=== PATIENT | female | born 2000 | race Caucasian/White ===

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

== ENCOUNTER 2022-01-30 11:10 | Outpatient (CLI) | payer MEDICAID ==
[2022-01-30 17:41] LABS: BASOPHILS % (AUTO) 0.6 %; EOSINOPHILS # (AUTO) 0.1 10^3/uL (0.0-0.7); EOSINOPHILS % (AUTO) 1.5 %; HCT - HEMATOCRIT 43.2 % (37.0-47.0); HGB - HEMOGLOBIN 14.3 g/dL (12.0-16.0); LYMPHOCYTES # (AUTO) 2.2 10^3/uL (1.5-3.5); MEAN CORPUSCULAR HEMOGLOBIN 29.5 pg (27.0-31.0); MEAN CORPUSCULAR HGB CONC 33.1 g/dL (32.0-36.0); MEAN CORPUSCULAR VOLUME 89.3 fL (81.0-99.0); MEAN PLATELET VOLUME 10.7 fL (7.9-10.8); MONOCYTES # (AUTO) 0.5 10^3/uL (0.0-1.0); MONOCYTES % (AUTO) 8.1 %; NEUTROPHILS # (AUTO) 3.3 10^3/uL (1.5-6.6); NEUTROPHILS % (AUTO) 53.6 %; PLT - PLATELET COUNT 315 10^3/uL (130-450); RED BLOOD COUNT 4.84 10^6/uL (4.20-5.40); RED CELL DISTRIBUTION WIDTH 12.4 % (12.0-15.0); WHITE BLOOD COUNT 6.2 x10^3/uL (4.8-10.8)
[2022-01-30 17:56] LABS: ALBUMIN 4.8 g/dL (3.2-5.5); ALBUMIN/GLOBULIN RATIO 1.5 (1.0-2.2); ALKALINE PHOSPHATASE 51 IU/L (42-121); ALT ALANINE AMINOTRANSFERASE 13 IU/L (10-60); AST ASPARTATE AMINOTRANSFERASE 17 IU/L (10-42); BILIRUBIN,TOTAL 0.4 mg/dL (0.2-1.0); BUN - BLOOD UREA NITROGEN 12 mg/dL (6-20); CALCIUM 9.8 mg/dL (8.5-10.3); CARBON DIOXIDE - CO2 29 mmol/L (21-32); CHLORIDE 102 mmol/L (101-111); CHOL/HDL RATIO 3.3 (<4.4); CHOLESTEROL 144 mg/dL; CREATININE 0.7 mg/dL (0.4-1.0); GFR - MDRD 107 (>89); GLUCOSE 101 mg/dL (70-100); HDL CHOLESTEROL 44 mg/dL; LDL CHOLESTEROL,CALCULATED 88 mg/dL; POTASSIUM 4.2 mmol/L (3.5-5.0); SODIUM 139 mmol/L (135-145); TRIGLYCERIDES 62 mg/dL; VLDL CHOLESTEROL 12 mg/dL
[2022-01-30 20:35] LABS: CHLAMYDIA TRACHOMATIS DNA NEGATIVE (NEGATIVE); NEISSERIA GONORRHOEAE DNA NEGATIVE (NEGATIVE); TRICHOMONAS VAGINALIS DNA NEGATIVE (NEGATIVE)
== END 2022-01-30 11:11 | disposition home or self-care (01) ==
LOC: LAB.N 11:10
PROVIDERS: ATTEND Nurse Practitioner
DX: Z00.00 Encounter for general adult medical examination without abnormal findings (principal); Z13.220 Encounter for screening for lipoid disorders; Z11.3 Encounter for screening for infections with a predominantly sexual mode of transmission
CPT/HCPCS: 36415; 80053; 80061; 83721; 85025; 87491; 87591; 87661

== ENCOUNTER 2023-09-12 06:30 | Emergency (ER) | payer MEDICAID ==
--- NOTE | 2023-09-12 07:11 | ED Physician Documentation ---
PD HPI FEMALE - Stated complaint Stated Complaint: FEMALE - Chief complaint Chief Complaint: Abd Pain - History obtained from History obtained from: Patient - History of Present Illness Timing - onset: How many months ago (2) Timing - duration: Months (2) Timing - details: Gradual onset, Still present, Waxing and waning Associated symptoms: Pelvic pain. No: Back pain, Vaginal bleeding, Vaginal discharge, Dysuria, Urinary frequency Contributing factors: Sexually active. 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 denies: Dysuria, Frequency, Discharge Skin: denies: Rash, Lesions PD PAST MEDICAL HISTORY - Past Medical History Past Medical History: Yes Cardiovascular: None Respiratory: None Neuro: Headaches, Migraines Endocrine/Autoimmune: None GI: GERD OUTSIDE SALESMAN: None : None HEENT: None Psych: Depression, Anxiety Musculoskeletal: None Derm: None - Past Surgical History Past Surgical History: No - Present Medications Home Medications: Ambulatory Orders Medication Instructions Recorded Confirmed Fluconazole [Diflucan] 100 mg PO Q3D #3 tablet 09/12/23 Meloxicam [Mobic] 7.5 mg PO BID 10 Days #20 tablet 09/12/23 metroNIDAZOLE [Flagyl] 500 mg PO BID 10 Days #20 tablet 09/12/23 - Allergies Allergies/Adverse Reactions: Allergies Allergy/AdvReac Type Severity Reaction Status Date / Time No Known Drug Allergies Allergy Verified 09/12/23 06:50 - Social History Does the pt smoke?: Yes Smoking Status: Current every day smoker Does the pt drink ETOH?: Yes Does the pt have substance abuse?: Yes Substance Use and Type: Marijuana, Meth - Immunizations Immunizations are current?: Yes - POLST Patient has POLST: No PD ED PE NORMAL - Vitals Vital signs reviewed: Yes - General General: Alert and oriented X 3, No acute distress, Well developed/nourished - Abdomen Abdomen: Soft, Non tender - Female Female : Deferred - Rectal Rectal: Deferred - Back Back: No CVA TTP - Derm Derm: Normal color, Warm and dry Results - Vitals Vitals: Vital Signs - 24 hr 09/12/23 09/12/23 09/12/23 06:52 10:19 11:37 Temperature 36.3 C L 36 C L Heart Rate 86 66 90 Respiratory 16 16 18 Rate Blood Pressure 120/72 107/72 118/75 O2 Saturation 99 99 98 Oxygen O2 Source Room air - Labs Labs: Laboratory Tests 09/12/23 09/12/23 09/12/23 07:42 08:10 08:10 Urine Color YELLOW Urine Clarity CLEAR Urine pH 7.0 Ur Specific [place] 1.020 Urine Protein NEGATIVE Urine Glucose (UA) NEGATIVE Urine Ketones NEGATIVE Urine Occult Blood NEGATIVE Urine Nitrite NEGATIVE Urine Bilirubin NEGATIVE Urine Urobilinogen 0.2 (NORMAL) Ur Leukocyte Esterase NEGATIVE Ur Microscopic Review NOT INDICATED Urine Culture Comments NOT INDICATED Urine HCG, Qual NEGATIVE C. glabrata (PCR) NEGATIVE C. krusei (PCR) NEGATIVE [place] species DNA POSITIVE A Chlam trachomat DNA PCR NEGATIVE N.gonorrhoeae DNA (PCR) NEGATIVE T. vaginalis (PCR) NEGATIVE TNP Bact Vaginosis (PCR) POSITIVE A - Rads (name of study) pelvic US Relevant Findings:: Prelim report reviewed (normal pelvic US. IUD in place without problems. ), EMP independent interpretation of test PD Medical Decision Making - ED course Complexity details: reviewed results (pelvic US showing IUD in place. Normal adnexa. No acute process. Vaginal testing positive for yeast and BV. UA negative.), considered differential (lower abd pelvic cramping pain. Has had IUD in place for 1 1/2 years wthout problems. Presume the current infection leading to pelvic pains. ), d/w patient Departure - Departure Disposition: 01 Home, Self Care Clinical Impression: Lower abdominal pain, IUD (intrauterine device) in place, Vaginitis Condition: Stable Record reviewed to determine appropriate education?: Yes Instructions: ED Vaginosis Bacterial Follow-[facility]: [facility] [Provider Group] Prescriptions: Fluconazole [Diflucan] 100 mg PO Q3D #3 tablet metroNIDAZOLE [Flagyl] 500 mg PO BID 10 Days #20 tablet Meloxicam [Mobic] 7.5 mg PO BID 10 Days #20 tablet Comments: Your urine test is normal as is test. The ultrasound showed normal ovaries without any cysts. The IUD is in the correct position. The vaginal swab test actually just resulted a few minutes ago and is showing signs of a vaginitis of both bacterial and yeast. This is likely causing the irritation and cramping and pains. We can treat this with an antifungal as well as an antibiotic. In addition I would suggest some regular use of anti-inflammatories. I wrote a prescription for meloxicam, metronidazole and Diflucan. To that add Tylenol 500 to 650 mg 4 times daily if needed for pains. I would anticipate improvement over the next several days to week. You can follow-up with the women's health clinic and to make an appointment for 2 or 3 weeks from now. They can recheck to ensure the infection has cleared completely. I sent your prescriptions to your preferred pharmacy. Forms: PCP List Discharge Date/Time: 09/12/23 11:38
[2023-09-12] MEDS ORDERED: NAPROXEN 250 MG TABLET PO STA (07:44)
[2023-09-12 07:59] LABS: BILIRUBIN,URINE NEGATIVE (NEGATIVE); GLUCOSE, URINE (UA) NEGATIVE (NEGATIVE); KETONES,URINE (UA) NEGATIVE (NEGATIVE); LEUKOCYTE ESTERASE, URINE NEGATIVE (NEGATIVE); NITRITE,URINE NEGATIVE (NEGATIVE); OCCULT BLOOD,URINE NEGATIVE (NEGATIVE); PROTEIN,URINE NEGATIVE (NEGATIVE); UROBILINOGEN,URINE 0.2 (NORMAL) E.U./dL (NORMAL)
[2023-09-12 08:08] LABS: CLARITY,URINE CLEAR (CLEAR); HCG UR QUAL NEGATIVE
[2023-09-12 10:29] LABS: BACTERIAL VAGINOSIS DNA POSITIVE (NEGATIVE); CANDIDA GLABRATA DNA NEGATIVE (NEGATIVE); CANDIDA GROUP DNA POSITIVE (NEGATIVE); CANDIDA KRUSEI DNA NEGATIVE (NEGATIVE); TRICHOMONAS VAGINALIS DNA NEGATIVE (NEGATIVE)
[2023-09-12 11:26] LABS: CHLAMYDIA TRACHOMATIS DNA NEGATIVE (NEGATIVE); NEISSERIA GONORRHOEAE DNA NEGATIVE (NEGATIVE)
--- NOTE | 2023-09-12 11:42 | Ultrasound Report ---
PROCEDURE: Pelvic w/Transvag+Doppler Comp INDICATIONS: pelvic cramping; IUD in place TECHNIQUE: Real-time scanning was performed of the pelvic organs, with image documentation. Additional endovagi nal scanning was necessary due to incomplete visualization of the adnexal and endometrial structures by transabdominal scanning. Doppler interrogation was performed of the ovaries bilaterally. COMPARISON: None. FINDINGS: Uterus: Uterus is anteverted and normal in size at 7.7 x 3 x 4.2 cm. The myometrium is homogeneous. The endometrium measures 2.5 mm in combined thickness. There is no endometrial mass or fluid. Intr auterine device is noted within its central endometrial location. Ovaries: The right ovary measures 3.3 x 2.1 x 3.4 cm, with a calculated ovarian volume of 12.3 cc. The left ovary measures 3.7 x 1.9 x 1.8 cm, with a calculated ovarian volume of 6.6 cc. Appropriate blood flow to the ovaries with Doppler interrogation. Less than 12 follicles can be seen in left ov bonnie. Greater than 12 follicles are seen in right ovary. No adnexal masses are seen. No cystic lesions measuring greater than 3 cm. Other: No pathologic free abdominal or pelvic fluid. IMPRESSION: 1. Greater than 12 follicles can be seen in right ovary, which can be seen in the clinical setting of PCOS. Normal-appearing left ovary. 2. Intrauterine device is seen in its normal central endometrial location. No endometrial mass or flu id. No discrete uterine fibroid. Reviewed by: Mark Sandhu MD on 09/12/2023 11:[address] [facility] Approved by: Mark Sandhu MD on 09/12/2023 11:40 AM PST Station ID: [id number]
[2023-09-12 11:44] VITALS: BP 118/75; O2SAT 98
== END 2023-09-12 11:38 | disposition home or self-care (01) ==
LOC: ED 06:30
DX: N76.0 Acute vaginitis (principal); R10.30 Lower abdominal pain, unspecified; F17.200 Nicotine dependence, unspecified, uncomplicated; Z97.5 Presence of (intrauterine) contraceptive device
CPT/HCPCS: 76830; 76856; 81003; 81025; 81514; 87491; 87591; 93975; 99284; A9270; 81001; 87086; 87661

== ENCOUNTER 2023-10-28 10:49 | Emergency (ER) | payer MEDICAID ==
[2023-10-28 13:12] VITALS: BP 122/73; O2SAT 99
[2023-10-28 13:13] LABS: BILIRUBIN,URINE NEGATIVE (NEGATIVE); GLUCOSE, URINE (UA) NEGATIVE (NEGATIVE); KETONES,URINE (UA) NEGATIVE (NEGATIVE); LEUKOCYTE ESTERASE, URINE NEGATIVE (NEGATIVE); NITRITE,URINE NEGATIVE (NEGATIVE); OCCULT BLOOD,URINE NEGATIVE (NEGATIVE); PH,URINE 6.5 PH (5.0-7.5); PROTEIN,URINE 30 mg/dL (NEGATIVE); UROBILINOGEN,URINE 0.2 (NORMAL) E.U./dL (NORMAL)
[2023-10-28 13:14] LABS: CLARITY,URINE SL. CLOUDY (CLEAR); HCG UR QUAL NEGATIVE
[2023-10-28 13:22] LABS: BACTERIA,URINE Few /HPF (None Seen); RBC,URINE 0-5 /HPF (0-5); SQUAMOUS EPITHELIAL CELL,UR MANY Squamous (<= Few)
[2023-10-28 13:23] LABS: AMPHETAMINE SCREEN,URINE POSITIVE (NEGATIVE); BARBITURATE SCREEN,UR NEGATIVE (NEGATIVE); BENZODIAZEPINES SCREEN, URINE NEGATIVE (NEGATIVE); COCAINE SCREEN URINE NEGATIVE (NEGATIVE); METHADONE SCREEN, URINE NEGATIVE (NEGATIVE); METHAMPHETAMINES SCREEN, URINE POSITIVE (NEGATIVE); OPIATE SCREEN, URINE NEGATIVE (NEGATIVE); OXYCODONE SCREEN, URINE NEGATIVE (NEGATIVE); THC CANNABINOID SCREEN, URINE NEGATIVE (NEGATIVE); TRICYCLIC ANTIDEPRESSANT,URINE NEGATIVE (NEGATIVE)
[2023-10-28 13:24] LABS: BUPRENORPHINE SCREEN, URINE NEGATIVE (NEGATIVE)
--- NOTE | 2023-10-28 13:34 | ED Physician Documentation ---
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 : None HEENT: None Psych: Depression, Anxiety Musculoskeletal: None Derm: None - Past Surgical History Past Surgical History: No - Present Medications Home Medications: Ambulatory Orders Medication Instructions Recorded Confirmed HYDROcod/ACETAM 5/325 [[place] 5/325] 1 ea PO Q6H PRN #12 tablet 10/28/23 Meloxicam [Mobic] 7.5 mg PO BID 10 Days #20 tablet 10/28/23 - Allergies Allergies/Adverse Reactions: Allergies Allergy/AdvReac Type Severity Reaction Status Date / Time No Known Drug Allergies Allergy Verified 10/28/23 11:18 - Social History Does the pt smoke?: Yes Smoking Status: Current every day smoker Does the pt drink ETOH?: Yes Does the pt have substance abuse?: Yes Substance Use and Type: Marijuana, Meth - Immunizations Immunizations are current?: Yes - POLST Patient has POLST: No PD ED PE NORMAL - Vitals Vital signs reviewed: Yes - General General: Alert and oriented X 3, Well developed/nourished, Other (somewhat scattered thought process but able to give good history. ) - Derm Derm: Normal color, Warm and dry - Extremities Extremities: Other (gree to yleoow several bruises along shins both legs. No arm bruises. Knees both sides with tenderness above kneecaps with crepitance feeling on ROM c/w tendonitis. No effusions. Cruciate and collateral testins without laxity nor pain. ) - Neuro Neuro: Alert and oriented X 3, No motor deficit, No sensory deficit Results - Vitals Vitals: Oxygen O2 Source Room air - Labs Labs: Laboratory Tests 10/28/23 13:04 Urine Color YELLOW Urine Clarity SL. CLOUDY Urine pH 6.5 Ur Specific [place] 1.025 Urine Protein 30 H Urine Glucose (UA) NEGATIVE Urine Ketones NEGATIVE Urine Occult Blood NEGATIVE Urine Nitrite NEGATIVE Urine Bilirubin NEGATIVE Urine Urobilinogen 0.2 (NORMAL) Ur Leukocyte Esterase NEGATIVE Urine RBC 0-5 Urine WBC 4-5 Ur Squamous Epith Cells MANY Squamous H Urine Bacteria Few Ur Microscopic Review INDICATED Urine Culture Comments NOT INDICATED Urine HCG, Qual NEGATIVE Urine Opiates Screen NEGATIVE Ur Buprenorphine Scrn NEGATIVE Ur Oxycodone Screen NEGATIVE Urine Methadone Screen NEGATIVE Ur Barbiturates Screen NEGATIVE Ur Tricyclics Screen NEGATIVE Ur Phencyclidine Scrn NEGATIVE Ur Amphetamine Screen POSITIVE H U Methamphetamines Scrn POSITIVE H U Benzodiazepines Scrn NEGATIVE Urine Cocaine Screen NEGATIVE U Cannabinoids Screen NEGATIVE Ur Drug Screen Comment CUTOFF CONC BELOW: PD Medical Decision Making - ED course Complexity details: reviewed old records (various visits for other problems. No NIRALI, no apparent drug seeking pattern. Does have substance abuse problems with meth. No narcotic use/abuse in the past per patient. I feel okay iwth short term meds for pain along with NSAIDs/knee brace for left knee (the worst painful per pt).), reviewed results (UA positive for meth. She denies opiod abuse/use disorder. ), considered differential (no noted acute injury per se. Does have some bruising on shins that are green/yellow. No bruising on kneecaps. Has crepitance in quads tendons with ROM c/w tendonitis. No effusion. ), d/w patient Departure - Departure Disposition: 01 Home, Self Care Clinical Impression: Patellar tendinitis of both knees Condition: Stable Record reviewed to determine appropriate education?: Yes Instructions: Kneecap Probs Common Follow-Up: [facility] [Provider Group] Prescriptions: Meloxicam [Mobic] 7.5 mg PO BID 10 Days #20 tablet HYDROcod/ACETAM 5/325 [[place] 5/325] 1 ea PO Q6H PRN #12 tablet PRN Reason: Pain Comments: Your knees do not appear to have an infection to them. The ligaments with the main ones being cruciates and collateral ligaments seem okay on exam. On exam seems mostly that you have some patellar tendinitis which is some inflammation of the tendons over the kneecap. That is the crackly feeling that you have with movement of the knee, is movement of the tendon through the sheath without being as well-lubricated as usual due to inflammation. Less motion on the knees with walking. We provided a knee immobilizer to use mainly on the left 1 which is the one most bothering you. You can use that when up and around. You can have it off when rested. We can use a long-acting and a inflammatory. I prescribed meloxicam to use twice daily with food for the next 7 to 10 days. To that add Tylenol every 4-6 hours if needed for pain or hydrocodone/acetaminophen if needed for worse pain. I sent these to your preferred pharmacy. Recheck if not improving well over the next several days and resolved by 5 to 7 days. I would anticipate this getting better with the above treatments. Follow-up with the orthopedic office if persistent symptoms and problems. Return if needed. I am prescribing a short course of narcotic pain medication for you. These are potentially dangerous and addictive medications that should be used carefully. These medications may constipate you. Take an [id number] stool softener such as docusate twice daily with plenty of water while taking these medications. If you go 24 hours without a bowel movement, take [id number] MiraLAX, per package instructions. Do not drink or drive while taking these medications. If you received narcotic or sedating medications while in the emergency department do not drive for 24 hours. Store this medication in a safe, secure place and out of reach of children. It is a violation of federal law to give or sell this medication to another person or to use in a manner other than prescribed. The ED will not refill narcotic prescriptions, including prescriptions lost or stolen. You can dispose of unwanted medications at the [facility]'s office or at several pharmacies such as [facility] (?). Forms: PCP List Discharge Date/Time: 10/28/23 13:54
[2023-10-28] MEDS: dexAMETHasone 4 MG TABLET PO STA (13:50)
[2023-10-28] MEDS: ACETAMINOPHEN 500 MG TABLET PO STA (13:50)
== END 2023-10-28 13:54 | disposition home or self-care (01) ==
LOC: ED 10:49
DX: M76.52 Patellar tendinitis, left knee (principal); M76.51 Patellar tendinitis, right knee; F17.200 Nicotine dependence, unspecified, uncomplicated
CPT/HCPCS: 80306; 81001; 81025; 99283; A9270; J8540; 81003; 87086

== ENCOUNTER 2023-12-07 14:28 | Emergency (ER) | payer MEDICAID ==
--- NOTE | 2023-12-07 15:16 | ED Physician Documentation ---
PD HPI FEMALE - Stated complaint Stated Complaint: - Chief complaint Chief Complaint: General - History obtained from History obtained from: Patient - History of Present Illness Timing - onset: Last night Timing - details: Abrupt onset (she was using vibrator and felt that it got stuck in vagina. 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 : None HEENT: None Psych: Anxiety, Bipolar disorder Musculoskeletal: None Derm: None - Past Surgical History Past Surgical History: No - Present Medications Home Medications: Ambulatory Orders Medication Instructions Recorded Confirmed HYDROcod/ACETAM 5/325 [[place] 5/325] 1 ea PO Q6H PRN #12 tablet 10/28/23 Meloxicam [Mobic] 7.5 mg PO BID 10 Days #20 tablet 10/28/23 - Allergies Allergies/Adverse Reactions: Allergies Allergy/AdvReac Type Severity Reaction Status Date / Time No Known Drug Allergies Allergy Verified 12/07/23 14:32 - Social History Does the pt smoke?: Yes Smoking Status: Current every day smoker Does the pt drink ETOH?: Yes Does the pt have substance abuse?: Yes - Immunizations Immunizations are current?: Yes - POLST Patient has POLST: No PD ED PE NORMAL - Vitals Vital signs reviewed: Yes - General General: Alert and oriented X 3, No acute distress, Well developed/nourished - Abdomen Abdomen: Soft, Non tender - Female Female : Mud Logger 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 IUD string visible from cervical OS that is closed. No noted vaginal discahrge nor odor. ) - Rectal Rectal: Deferred - Derm Derm: Normal color, Warm and dry Results - Vitals Vitals: Vital Signs - 24 hr 12/07/23 12/07/23 12/07/23 14:32 16:17 16:43 Temperature 36.8 C Heart Rate 113 H 100 100 Respiratory 16 16 16 Rate Blood Pressure 140/90 H 130/86 H 130/86 H O2 Saturation 99 97 97 Oxygen O2 Source Room air - Rads (name of study) pelvic xray Relevant Findings:: Prelim report reviewed, EMP independent interpretation of test (IUD visible in uterine area. No other FB noted. ) PD Medical Decision Making - ED course Complexity details: considered differential (pt was sure of having small egg vibrator in vaginal vault. Pelvic without findings. Did pelvic xray after to ensure not rectal unintentionally. No FB seen (other that IUD in uterine position). ), d/w patient Departure - Departure Disposition: 01 Home, Self Care Clinical Impression: Normal pelvic exam Condition: Stable Record reviewed to determine appropriate education?: Yes Comments: I did not see any foreign bodies in the vaginal area. The IUD string is present. The IUD appears in place on plain x-ray. No other foreign body seen on the x-ray of your pelvis. As a side note, I also do not see any signs of infection or such on the pelvic exam. Forms: PCP List Discharge Date/Time: 12/07/23 16:43
[2023-12-07 16:21] VITALS: BP 130/86; O2SAT 97
--- NOTE | 2023-12-07 17:56 | XRAY Report ---
PROCEDURE: Pelvis 1-2V INDICATIONS: concern for FB pelvic/rectal TECHNIQUE: 1 view(s) of the pelvis acquired. COMPARISON: None. FINDINGS: Bones: No fractures or dislocations. No suspicious bony lesions. Soft tissues: There is a IUD in pelvis. Visualized bowel gas pattern is normal. No suspicious soft tissue calcifications. IMPRESSION: 1. No acute bony abnormality. IUD in pelvis. No other radiopaque foreign body. Reviewed by: Maliha Woodward MD on 12/07/2023 5:54 PM PDT Approved by: Maliha Woodward MD on 12/07/2023 5:54 PM PDT Station ID: [id number]
== END 2023-12-07 16:43 | disposition home or self-care (01) ==
LOC: ED 14:28
DX: Z01.419 Encounter for gynecological examination (general) (routine) without abnormal findings (principal); F31.9 Bipolar disorder, unspecified; F17.200 Nicotine dependence, unspecified, uncomplicated
CPT/HCPCS: 99283

== ENCOUNTER 2024-05-21 12:46 | Emergency (ER) | payer MEDICAID ==
[2024-05-21 13:03] VITALS: O2SAT 100
--- NOTE | 2024-05-21 13:03 | ED Physician Documentation ---
History of Present Illness - Stated complaint Stated Complaint: - Chief complaint Chief Complaint: UTI - History obtained from History obtained from: Patient - Additonal information Additional information: She gets occasional UTIs and has had increased dysuria and frequency over the last couple of days with some mild left flank pain. No fevers. 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 : None HEENT: None Psych: Anxiety, Bipolar disorder Musculoskeletal: None Derm: None - Past Surgical History Past Surgical History: No - Present Medications Home Medications: Ambulatory Orders Medication Instructions Recorded Confirmed Phenazopyridine HCl [Pyridium] 200 mg PO TID PRN #6 tablet 05/21/24 Sulfamethox/Trimeth 800/160 1 each PO BID #10 tablet 05/21/24 [Bactrim Ds 800/160] - Allergies Allergies/Adverse Reactions: Allergies Allergy/AdvReac Type Severity Reaction Status Date / Time No Known Drug Allergies Allergy Verified 05/21/24 12:49 - Social History Does the pt smoke?: Yes Smoking Status: Current every day smoker Does the pt drink ETOH?: Yes Does the pt have substance abuse?: Yes Substance Use and Type: Marijuana, Meth - Immunizations Immunizations are current?: Yes - POLST Patient has POLST: No PD ED PE NORMAL - General General: No acute distress, Well developed/nourished - Abdomen Abdomen: Non tender - Back Back: Other (Mild left CVA tenderness) - Neuro Neuro: Alert and oriented X 3 Results - Vitals Vitals: Vital Signs - 24 hr 05/21/24 05/21/24 05/21/24 12:49 12:56 14:06 Temperature 36.8 C Heart Rate 105 H 95 Respiratory 16 17 16 Rate Blood Pressure 124/84 H 127/85 H O2 Saturation 100 100 Oxygen O2 Source Room air - Labs Labs: Laboratory Tests 05/21/24 12:54 Urine Color YELLOW Urine Clarity SL. CLOUDY Urine pH 6.5 Ur Specific [place] 1.020 Urine Protein 100 H Urine Glucose (UA) NEGATIVE Urine Ketones NEGATIVE Urine Occult Blood SMALL H Urine Nitrite NEGATIVE Urine Bilirubin NEGATIVE Urine Urobilinogen 0.2 (NORMAL) Ur Leukocyte Esterase LARGE H Urine RBC 6-10 H Urine WBC >25 H Ur Squamous Epith Cells FEW Squamous Urine Bacteria Moderate H Ur Microscopic Review INDICATED Urine Culture Comments INDICATED Urine HCG, Qual NEGATIVE PD Medical Decision Making - ED course ED course: 23-year-old woman with simple cystitis symptoms and potentially early left pyelonephritis with positive urinalysis treated with Bactrim. Departure - Departure Disposition: 01 Home, Self Care Clinical Impression: Cystitis Condition: Good Record reviewed to determine appropriate education?: Yes Instructions: ED UTI Cystitis Female Prescriptions: Sulfamethox/Trimeth 800/160 [Bactrim Ds 800/160] 1 each PO BID #10 tablet Phenazopyridine HCl [Pyridium] 200 mg PO TID PRN #6 tablet PRN Reason: dysuria Comments: We will culture your urine, the results should be done in 48-72 hours. If an antibiotic change is necessary we will call you. Return if worse in the meantime, especially if you develop increasing flank pain, fevers, or cannot keep down the medication. Discharge Date/Time: 05/21/24 14:29
[2024-05-21 14:09] VITALS: BP 127/85
[2024-05-21 14:13] LABS: BILIRUBIN,URINE NEGATIVE (NEGATIVE); GLUCOSE, URINE (UA) NEGATIVE (NEGATIVE); KETONES,URINE (UA) NEGATIVE (NEGATIVE); LEUKOCYTE ESTERASE, URINE LARGE (NEGATIVE); NITRITE,URINE NEGATIVE (NEGATIVE); OCCULT BLOOD,URINE SMALL (NEGATIVE); PH,URINE 6.5 PH (5.0-7.5); PROTEIN,URINE 100 mg/dL (NEGATIVE); UROBILINOGEN,URINE 0.2 (NORMAL) E.U./dL (NORMAL)
[2024-05-21 14:16] LABS: CLARITY,URINE SL. CLOUDY (CLEAR)
[2024-05-21 14:20] LABS: HCG UR QUAL NEGATIVE
[2024-05-21 14:23] LABS: BACTERIA,URINE Moderate /HPF (None Seen); SQUAMOUS EPITHELIAL CELL,UR FEW Squamous (<= Few); WBC,URINE >25 /HPF (0-5)
== END 2024-05-21 14:29 | disposition home or self-care (01) ==
LOC: ED 12:46
DX: N30.90 Cystitis, unspecified without hematuria (principal); F17.200 Nicotine dependence, unspecified, uncomplicated
CPT/HCPCS: 81001; 81003; 81025; 87077; 87086; 87181; 99282; 99283